=== PATIENT | female | born 1985 | race Caucasian/White ===

== ENCOUNTER → 2017-03-12 | Outpatient (CLI) | payer OTHER ==
[2017-03-12 13:25] LABS: THYROID PEROXIDASE ANTIBODY < 28.0 U/ML (<60.0)
[2017-03-12 13:26] LABS: LUTEINIZING HORMONE 12.1 mIU/mL
[2017-03-12 13:28] LABS: ALBUMIN 4.4 GM/DL (3.2-5.2); ALBUMIN/GLOBULIN RATIO 0.98 (1.00-1.93); ALKALINE PHOSPHATASE 66 U/L (45-117); ALT/SGPT 37 U/L (12-78); ANION GAP 9 MEQ/L (8-16); AST/SGOT 20 U/L (7-37); BILIRUBIN,TOTAL 0.4 MG/DL (0.2-1.0); BLOOD UREA NITROGEN 12 MG/DL (7-18); CALCIUM LEVEL 9.2 MG/DL (8.5-10.1); CARBON DIOXIDE LEVEL 28 MEQ/L (21-32); CHLORIDE LEVEL 105 MEQ/L (98-107); CREATININE FOR GFR 0.76 MG/DL (0.55-1.02); FREE T4 1.12 NG/DL (0.76-1.46); GAMMA GLUTAMYLTRANSPEPTIDASE 155 U/L (5-55); GLOMERULAR FILTRATION RATE > 60.0 (>60); GLUCOSE, FASTING 90 MG/DL (70-105); POTASSIUM SERUM 4.5 MEQ/L (3.5-5.1); SODIUM LEVEL 142 MEQ/L (136-145); TOTAL PROTEIN 8.9 GM/DL (6.4-8.2)
[2017-03-12 13:29] LABS: FOLLICLE STIMULATING HORMONE 4.3 mIU/mL
[2017-03-12 13:31] LABS: HEPATITIS B SURFACE ANTIBODY POSITIVE (POSITIVE)
[2017-03-13 14:10] LABS: THYROID BINDING GLOBULIN 23 ug/mL (13-39)
== END ==
LOC: M SMT 10:07
PROVIDERS: ATTEND Family Medicine
DX: R74.8 Abnormal levels of other serum enzymes (principal); N92.6 Irregular menstruation, unspecified; R73.9 Hyperglycemia, unspecified

== ENCOUNTER → 2017-04-06 | Outpatient (CLI) | payer OTHER | LOC: M RAD 07:08 | DX: R19.7 Diarrhea, unspecified (principal); R74.8 Abnormal levels of other serum enzymes; D18.03 Hemangioma of intra-abdominal structures ==

== ENCOUNTER → 2017-04-23 | Outpatient (CLI) | payer OTHER ==
[2017-04-23 21:39] LABS: URINE TOTAL PROTEIN 8.5 MG/DL (0-12)
[2017-04-23 21:44] LABS: TOTAL PROTEIN 7.8 GM/DL (6.4-8.2)
[2017-04-26 11:24] LABS: ALBUMIN 4.52 GM/DL (3.29-5.55); ALPHA-1-GLOBULIN % 3.4 % (2.9-4.9); ALPHA-1-GLOBULINS 0.27 GM/DL (0.17-0.41); BETA-1-GLOBULINS 0.44 GM/DL (0.28-0.60); BETA-1-GLOBULINS % 5.6 % (4.7-7.2); BETA-2-GLOBULINS 0.38 GM/DL (0.19-0.55); BETA-2-GLOBULINS % 4.9 % (3.2-6.5); GAMMA GLOBULIN % 19.1 % (11.1-18.8); GAMMA GLOBULINS 1.49 GM/DL (0.65-1.58)
[2017-04-29 13:23] LABS: URINE VOLUME RANDOM ML
[2017-04-29 13:24] LABS: UPEP INTERPRETATION NO M-SPIKE NOTED
== END ==
LOC: M SMT 14:03
DX: E88.09 Other disorders of plasma-protein metabolism, not elsewhere classified (principal); R74.8 Abnormal levels of other serum enzymes
CPT/HCPCS: 84165

== ENCOUNTER → 2017-05-17 | Outpatient (CLI) | payer OTHER ==
[2017-05-17 20:27] LABS: PROTHROMBIN TIME 13.3 SECONDS (12.4-14.5)
[2017-05-17 20:28] LABS: PARTIAL THROMBOPLASTIN TIME 31.1 SECONDS (26.8-37.9)
[2017-05-17 21:20] LABS: ALBUMIN 4.3 GM/DL (3.2-5.2); ALBUMIN/GLOBULIN RATIO 1.16 (1.00-1.93); ALKALINE PHOSPHATASE 58 U/L (45-117); ALT/SGPT 31 U/L (12-78); AST/SGOT 20 U/L (7-37); BILIRUBIN,DIRECT 0.1 MG/DL (0.0-0.2); BILIRUBIN,TOTAL 0.4 MG/DL (0.2-1.0); C REACTIVE PROTEIN QUANTITATIV < 0.30 MG/DL (0.00-0.30); FERRITIN 59 NG/ML (8-252); IRON (FE) 51 UG/DL (50-170); PERCENT SATURATION 17.5 % (13.2-45.0); TOTAL IRON BINDING CAPACITY 291 UG/DL (250-450)
[2017-05-17 21:26] LABS: ERYTHROCYTE SEDIMENTATION RATE 9 mm/hr (0-20)
[2017-05-18 11:31] LABS: ALBUMIN 4.66 GM/DL (3.29-5.55); ALBUMIN % 58.2 % (55.8-66.1); ALPHA-1-GLOBULIN % 3.4 % (2.9-4.9); ALPHA-1-GLOBULINS 0.27 GM/DL (0.17-0.41); ALPHA-2-GLOBULINS 0.73 GM/DL (0.42-0.99); ALPHA-2-GLOBULINS % 9.1 % (7.1-11.8); BETA-1-GLOBULINS 0.43 GM/DL (0.28-0.60); BETA-1-GLOBULINS % 5.4 % (4.7-7.2); GAMMA GLOBULIN % 18.9 % (11.1-18.8); GAMMA GLOBULINS 1.51 GM/DL (0.65-1.58)
[2017-05-19 10:45] LABS: HEPATITIS B SURFACE ANTIBODY POSITIVE (POSITIVE)
[2017-05-19 10:51] LABS: HEPATITIS B SURFACE ANTIGEN NEGATIVE (NEGATIVE)
[2017-05-19 11:00] LABS: HEPATITIS A ANTIBODY IGM NEGATIVE (NEGATIVE)
[2017-05-22 00:06] LABS: ALPHA 1 ANTITRYPSIN 136 mg/dL (90-200); ANCA-ATYPICAL <1:20 titer (Neg:<1:20); ANTI-MITOCHONDRIAL ANTIBODY 1.5 Units (0.0-20.0); ANTI-SACCHAROMYCES CEREV. IgA <20.0 Units (0.0-24.9); ANTI-SACCHAROMYCES CEREV. IgG <20.0 Units (0.0-24.9); ANTI-SMOOTH MUSCLE ANTIBODY 8 Units (0-19); ANTINUCLEAR ANTIBODIES DIRECT Negative (Negative); CERULOPLASMIN 23.2 mg/dL (19.0-39.0); CYTOPLASMIC NEUTROP AB ANCA-C <1:20 titer (Neg:<1:20); ENDOMYSIAL ABY IgA Negative (Negative); HEPATITIS A IgG TOTAL Negative (Negative); LIVER-KIDNEY MICROSOMAL ABY 0.5 Units (0.0-20.0); PERINUCLEAR AB ANCA-P <1:20 titer (Neg:<1:20); TISSUE TRANSGLUTAMINASE IgA <2 U/mL (0-3); TISSUE TRANSGLUTAMINASE IgG <2 U/mL (0-5); UNITSIGA FOR GLIADIN IGA 3 units (0-19); UNITSIGG FOR GLIADIN IGG 2 units (0-19)
== END ==
LOC: M WUC 15:25
DX: R19.7 Diarrhea, unspecified (principal); R19.5 Other fecal abnormalities; R14.0 Abdominal distension (gaseous); R94.5 Abnormal results of liver function studies; D18.03 Hemangioma of intra-abdominal structures
CPT/HCPCS: 83550

== ENCOUNTER → 2017-07-02 | Outpatient (CLI) | payer OTHER ==
[2017-07-02 14:43] LABS: GAMMA GLUTAMYLTRANSPEPTIDASE 159 U/L (5-55)
== END ==
LOC: M WUC 11:37
DX: R94.5 Abnormal results of liver function studies (principal); R19.7 Diarrhea, unspecified; D18.03 Hemangioma of intra-abdominal structures
CPT/HCPCS: 82977